=== PATIENT | female | born 1965 | race Two or more races ===

== ENCOUNTER 2020-07-05 10:59 | Inpatient (IN) | payer MEDICAID, OTHER ==
[~2020-07-05] VITALS: Ht 167.6 cm; Wt 45.4 kg
[2020-07-05] MEDS ORDERED: HALOPERIDOL 5 MG TABLET PO PRN (15:00)
[2020-07-05] MEDS ORDERED: ZOLPIDEM TARTRATE 10 MG TABLET PO PRN (15:00)
[2020-07-05] MEDS ORDERED: LORazepam 2 MG TABLET PO PRN (15:00)
[2020-07-05 15:46] VITALS: BP 95/58
[2020-07-05] MEDS ORDERED: RISP1TAB27 PO (15:56)
[2020-07-05 17:31] VITALS: BP 90/61
[2020-07-06 01:35] VITALS: BP 107/82
[2020-07-06] MEDS ORDERED: CloNIDine HCL 0.1 MG TABLET PO PRN (07:30)
[2020-07-06] MEDS ORDERED: ONDANSETRON HCL 4 MG TABLET PO PRN (07:30)
[2020-07-06] MEDS ORDERED: MAGNESIUM HYDROXIDE SUSPENSION 30 ML UDCUP PO PRN (07:30)
[2020-07-06] MEDS ORDERED: ALBUTEROL SULFATE HFA 90 MCG/PUFF 8 GM INHALER IH PRN (07:30)
[2020-07-06] MEDS ORDERED: DOCUSATE SODIUM 100 MG CAPSULE PO PRN (07:30)
[2020-07-06] MEDS ORDERED: ACETAMINOPHEN 325 MG TABLET PO PRN (07:30)
[2020-07-06] MEDS ORDERED: NICOTINE 14 MG/24 HOUR PATCH TD PRN (07:30)
[2020-07-06] MEDS ORDERED: LOPERAMIDE HCL 2 MG CAPSULE PO PRN (07:30)
[2020-07-06] MEDS ORDERED: GuaiFENesin/D-METHORPHAN [SUGAR-FREE] 200-20MG/10 ML SYRUP UDCUP PO PRN (07:30)
[2020-07-06] MEDS ORDERED: PETROLATUM,WHITE 28 GM JELLY TP PRN (07:30)
[2020-07-06] MEDS ORDERED: MAG HYDROX/AL HYDROX/SIMETH ES 30 ML SUSPENSION UDCUP PO PRN (07:30)
[2020-07-06] MEDS ORDERED: IBUPROFEN 400 MG TABLET PO PRN (07:30)
[2020-07-06 07:39] LABS: BASOPHILS % (AUTO) 1.3 % (0.0-2.0); EOSINOPHILS % (AUTO) 0 % (1.0-6.0); HEMATOCRIT 29.7 % (36-46); LYMPHOCYTES # (AUTO) 0.8 K/uL (1.0-4.8); LYMPHOCYTES % (AUTO) 19.4 % (22.0-44.0); MEAN CORPUSCULAR HEMOGLOBIN 20.3 pg (26.0-34.0); MEAN CORPUSCULAR HGB CONC 30.3 G/dL (31.0-37.0); MEAN CORPUSCULAR VOLUME 67 fL (80-100); MONOCYTES # (AUTO) 0.5 K/uL (0.1-1.0); MONOCYTES % (AUTO) 12.9 % (2.0-9.0); NEUTROPHILS # (AUTO) 2.6 K/uL (1.8-7.7); NEUTROPHILS % (AUTO) 66.4 % (40.0-70.0); PLATELET COUNT (AUTO) 379 K/uL (150-450); RED BLOOD CELL COUNT(AUTO) 4.44 MIL/uL (4.00-5.20); RED CELL DISTRIBUTION WIDTH 26.9 % (11.5-14.5)
[2020-07-06 08:00] VITALS: BP 110/72
[2020-07-06 08:02] LABS: ALANINE AMINOTRANSFERASE 21 U/L (12-78); ALBUMIN 3.3 g/dL (3.4-5.0); ALKALINE PHOSPHATASE 59 U/L (46-116); ANION GAP 6 mmol/L (8-16); ASPARTATE AMINOTRANSFERASE 13 U/L (15-37); BILIRUBIN,TOTAL 1.2 mg/dL (0.1-1.0); CALCIUM, TOTAL 8.9 mg/dL (8.8-10.5); CARBON DIOXIDE 29 mmol/L (22-29); CHLORIDE 103 mmol/L (98-107); CHOL/HDL RATIO 3.8 (3.9-5.7); CHOLESTEROL 119 mg/dL (131-200); CREATININE 0.65 mg/dL (0.60-1.30); GLOMERULAR FILTR. RATE CALC > 60 mL/min (>60); GLUCOSE,RANDOM 74 mg/dL (70-110); HDL CHOLESTEROL 31 mg/dL (40-60); SODIUM SERUM 138 mmol/L (136-145); TRIGLYCERIDES 57 mg/dL (15-150); UREA NITROGEN, BLOOD 13 mg/dL (7-18)
[2020-07-06 08:03] LABS: FREE T4 (FREE THYROXINE) 1.01 ng/dL (0.76-1.46); HCG,QUANTITATIVE 1 mIU/mL (0-6); LDL CHOL (CALC.) 77 mg/dL (0-130); THYROID STIMULATING HORMONE 6.79 uIU/mL (0.36-3.74)
[2020-07-06] MEDS: RisperiDONE 1 MG TABLET PO SCH ×2 (12:41→20:18)
[2020-07-06 18:39] VITALS: BP 110/68
[2020-07-07 05:58] VITALS: BP 98/65
[2020-07-07] MEDS: RisperiDONE 1 MG TABLET PO SCH ×2 (08:19→20:00)
[2020-07-07 08:22] VITALS: BP 108/63
[2020-07-07 16:09] VITALS: BP 101/60
[2020-07-08 05:44] VITALS: BP 100/62
[2020-07-08] MEDS: RisperiDONE 1 MG TABLET PO SCH (08:22)
[2020-07-08 08:28] VITALS: BP 106/69
[2020-07-08 16:26] VITALS: BP 98/60
== END 2020-07-08 16:35 | disposition home or self-care (01) | DRG 885 ==
LOC: B3A 15:24
DX: F25.1 Schizoaffective disorder, depressive type (principal); R45.851 Suicidal ideations; Z59.0 Homelessness; K59.00 Constipation, unspecified; F19.10 Other psychoactive substance abuse, uncomplicated; I95.9 Hypotension, unspecified; D64.9 Anemia, unspecified; D72.819 Decreased white blood cell count, unspecified; Z79.899 Other long term (current) drug therapy
CPT/HCPCS: 84439; 84443